=== PATIENT | female | born 1985 | race Caucasian/White ===

== ENCOUNTER 2020-07-30 15:22 | Emergency (ER) | payer MEDICAID ==
[~2020-07-30] VITALS: Ht 160 cm; Wt 77.3 kg
[~2020-07-30 15:22] MED LIST: LEVO25TA7 PO; PANT40TA54 PO
[2020-07-30 15:25] VITALS: BP 150/102
[2020-07-30] MEDS ORDERED: PRED10TA23 PO (15:37)
[2020-07-30] MEDS ORDERED: HYDR28CR14 TOP (15:37)
[2020-07-30] MEDS ORDERED: triamcinolone acetonide 40mg/ml inj IM ONE (15:40)
== END 2020-07-30 16:11 | disposition home or self-care (01) ==
LOC: ER 15:23
DX: L23.7 Allergic contact dermatitis due to plants, except food (principal); F15.90 Other stimulant use, unspecified, uncomplicated; F11.90 Opioid use, unspecified, uncomplicated; Z79.899 Other long term (current) drug therapy
CPT/HCPCS: 96372; 99283; J3301

== ENCOUNTER 2021-03-08 08:07 | Emergency (ER) | payer MEDICAID ==
[~2021-03-08] VITALS: Ht 160 cm; Wt 77.0 kg
[~2021-03-08 08:07] MED LIST changes: +HYDR28CR14 TOP
[2021-03-08 08:11] VITALS: BP 172/102
[2021-03-08] MEDS ORDERED: buprenorphine/naloxone 8MG-2MG SUBlingual film SL STA (09:03)
[2021-03-08] MEDS ORDERED: ondansetron 4mg rapidly disintigrating tab PO ONE (09:05)
[2021-03-08] MEDS ORDERED: BUPR1FIL3 SL (10:24)
== END 2021-03-08 10:45 | disposition home or self-care (01) ==
LOC: ER 08:08
DX: F11.23 Opioid dependence with withdrawal (principal); Z20.822 Contact with and (suspected) exposure to COVID-19; F15.90 Other stimulant use, unspecified, uncomplicated; Z79.899 Other long term (current) drug therapy
CPT/HCPCS: 87635; 99283; C9803

== ENCOUNTER 2024-04-26 14:24 | Emergency (ER) | payer MEDICAID ==
[~2024-04-26] VITALS: Ht 167.6 cm; Wt 111.4 kg
[~2024-04-26 14:24] MED LIST changes: +UNABLE TO OBTAIN
[2024-04-26 14:50] LABS: BASOPHILS # (AUTO) 0.1 X10'3 (0-0.2); EOSINOPHILS % (AUTO) 0.3 % (0-6); MEAN PLATELET VOLUME 8.5 FL (7.4-10.4); NEUTROPHILS % (AUTO) 85.7 % (42-75)
[2024-04-26 14:52] LABS: BASOPHILS % (AUTO) 0.7 % (0-1); HEMATOCRIT 37.9 % (35.0-45.0); LYMPHOCYTES # (AUTO) 1.6 X10'3 (1.1-4.8); LYMPHOCYTES % (AUTO) 9.2 % (21-51); MEAN CORPUSCULAR HEMOGLOBIN 30.5 PG (27.0-31.0); MEAN CORPUSCULAR HGB CONC 34.1 g/dL (33.0-36.5); MEAN CORPUSCULAR VOLUME 89.5 FL (78-98); MONOCYTES # (AUTO) 0.7 X10'3 (0-0.9); MONOCYTES % (AUTO) 4.1 % (2-12); NEUTROPHILS # (AUTO) 15.1 X10'3 (1.8-7.7); PLATELET COUNT 326 X10'3 (140-440); RED BLOOD COUNT 4.23 X10'6 (4.20-5.60); RED CELL DISTRIBUTION WIDTH 13.7 % (11.5-14.5); WHITE BLOOD COUNT 17.6 X10'3 (4.5-11.0)
[2024-04-26 14:57] LABS: HEMOGLOBIN 12.9 g/dl (12.0-16.0)
[2024-04-26] MEDS: ketamine 50 mg/ml 10ml vial ONE (15:04)
[2024-04-26] MEDS: normal saline 1000ml 1,000 ML IV ONE ×2 (15:05)
[2024-04-26 15:07] LABS: URINE HCG POSITIVE (NEG)
[2024-04-26 15:09] LABS: BILIRUBIN,URINE NEGATIVE (Neg); CLARITY,URINE CLOUDY (Clear); COLOR,URINE YELLOW (Yellow); GLUCOSE, URINE NEGATIVE (Neg); KETONES,URINE 40 mg/dl (Neg); LEUKOCYTE ESTERASE ,URINE TRACE (Neg); NITRITES, URINE NEGATIVE (Neg); OCCULT BLOOD,URINE MODERATE (Neg); PROTEIN,URINE 100 mg/dl (Neg); UROBILINOGEN,URINE 0.2 E.U/dL (0.2-1.0)
[2024-04-26 15:17] LABS: ALANINE AMINOTRANSFERASE 20 U/L (12-78); ALBUMIN 3.1 G/DL (3.4-5.0); ALBUMIN/GLOBULIN RATIO 0.9 (1.1-1.5); ALKALINE PHOSPHATASE 60 IU/L (46-116); ANION GAP 12 (8-16); ASPARTATE AMINO TRANSFERASE 15 U/L (10-37); BILIRUBIN,TOTAL 0.4 MG/DL (0.1-1.0); BLOOD UREA NITROGEN 18 MG/DL (7-18); BUN/CREATININE RATIO 19.8 (10.0-20.0); CALCIUM 8.1 MG/DL (8.5-10.1); CHLORIDE 103 MMOL/L (99-107); CREATININE 0.91 MG/DL (0.40-0.90); GLUCOSE 198 MG/DL (70-104); POTASSIUM 3.6 MMOL/L (3.5-5.1); SODIUM 138 MMOL/L (135-145); TOTAL CARBON DIOXIDE 23.2 MMOL/L (24-32); TOTAL PROTEIN 6.7 G/DL (6.4-8.2); eCRCL 78 ML/MIN; eGFR 69 ML/MIN
[2024-04-26 15:18] LABS: UA COLLECTION TYPE STRAIGHT CATH
[2024-04-26 15:18] LABS: PREOP HCG, QL SERUM POSITIVE (NEGATIVE)
[2024-04-26 15:19] LABS: BACTERIA,URINE 4+ /HPF (Neg); MUCUS STRANDS MODERATE /LPF (Neg); SQUAMOUS EPITHELIAL CELL,UR MANY /LPF (FEW)
[2024-04-26 15:24] LABS: TOTAL CELLS COUNTED 100
[2024-04-26 15:25] LABS: PLATELET ESTIMATE NORMAL
[2024-04-26 15:41] LABS: LIPASE 20 U/L (16-77)
[2024-04-26 15:42] VITALS: BP 107/60; PULSE 75; RESP 20; TEMP 98.5; O2SAT 99
[2024-04-26 15:46] LABS: BETA HCG,QUANTITATIVE 5894 mIU/ml
== END 2024-04-26 15:49 | disposition short-term general hospital (02) ==
LOC: ER 14:25
DX: O00.90 Unspecified ectopic pregnancy without intrauterine pregnancy (principal); O08.3 Shock following ectopic and molar pregnancy; F15.90 Other stimulant use, unspecified, uncomplicated; F11.90 Opioid use, unspecified, uncomplicated
CPT/HCPCS: 36415; 36430; 36556; 76801; 76817; 80053; 81001; 81025; 83690; 84702; 84703; 85007; 85025; 86885; 86900; 86901; 86920; 87077; 87088; 87186; 93976; 96360; 99291; J7030; J7040; P9016; 99285; A6258; C1751; C1758

== ENCOUNTER 2024-05-20 02:20 | Emergency (ER) | payer MEDICAID | END 2024-05-20 02:41 | disposition left against medical advice (07) | LOC: ER 02:21 | DX: L23.7 Allergic contact dermatitis due to plants, except food (principal); Z53.21 Procedure and treatment not carried out due to patient leaving prior to being seen by health care provider ==

== ENCOUNTER 2024-05-25 15:30 | Emergency (ER) | payer MEDICAID ==
[~2024-05-25] VITALS: Ht 160 cm; Wt 94.5 kg
[2024-05-25 15:38] VITALS: BP 162/83; PULSE 92; RESP 18; TEMP 97.8; O2SAT 98
[2024-05-25] MEDS ORDERED: chlorhexidine gluc 4% **topical ** 120ml btl. TP ONE (16:25)
[2024-05-25] MEDS ORDERED: SULF1TAB49 PO (16:28)
[2024-05-25] MEDS ORDERED: CEPH-585 PO (16:28)
[2024-05-25] MEDS: sulfamethoxazole/trimethoprim DS (800/160mg) tablet PO ONE (17:07)
[2024-05-25] MEDS: CHLORHEXIDINE GLUCONATE 4% 15 ML topical sol TP ONE (17:23)
== END 2024-05-25 17:34 | disposition home or self-care (01) ==
LOC: ER 15:31
DX: L03.116 Cellulitis of left lower limb (principal); L03.115 Cellulitis of right lower limb; F15.90 Other stimulant use, unspecified, uncomplicated; F11.90 Opioid use, unspecified, uncomplicated; Z79.899 Other long term (current) drug therapy
CPT/HCPCS: 99283